=== PATIENT | male | born 1985 | race Caucasian/White ===

== ENCOUNTER 2017-06-23 15:59 | Emergency (ER) | payer SELFPAY ==
[2017-06-23] MEDS ORDERED: HYDROcodone/Acetaminophen 5/325 mg Tablet ONE (17:07)
[2017-06-23] MEDS ORDERED: Ondansetron ODT 4 MG TAB ONE (17:23)
[2017-06-23] MEDS ORDERED: Ketorolac Tromethamine 60 MG/2 ML VIAL ONE (17:23)
--- NOTE | 2017-06-23 17:59 | RAD ---
RIGHT KNEE FOUR VIEWS: History: Pain. Comparison: None. FINDINGS: There is a large joint effusion. No displaced fracture or malalignment. No significant degenerative c hange. IMPRESSION: Large joint effusion without osseous abnormality. This may be sequellae of internal derangement, infe ction, or synovitis. Joint aspiration may be necessary in this patient. POS: [facility]
== END 2017-06-23 17:45 | disposition home or self-care (01) ==
LOC: ERS 15:59
DX: S89.91XA Unspecified injury of right lower leg, initial encounter (principal); F43.10 Post-traumatic stress disorder, unspecified; X50.1XXA Overexertion from prolonged static or awkward postures, initial encounter; Y93.02 Activity, running; Y92.488 Other paved roadways as the place of occurrence of the external cause; Y99.0 Civilian activity done for income or pay
CPT/HCPCS: 96372; J1885; Q0162